=== PATIENT | female | born 1960 | race Two or more races ===

== ENCOUNTER 2022-07-27 21:33 | Emergency (ER) | payer OTHER, SELFPAY ==
--- NOTE | ~2022-07-27 | XR_ITS ---
EXAMINATION: XR CHEST CLINICAL INFORMATION: Chest pain COMPARISON: None TECHNIQUE: Frontal view of the chest was obtained. FINDINGS: The lungs are clear with no focal consolidation. No evidence of pneumothorax, pulmonary edema, or pleural effusions. The cardiomediastinal silhouette is unremarkable. No acute osseous findings. XR/XR chest 1V IMPRESSION: No acute cardiopulmonary findings.
[2022-07-27 21:53] VITALS: BP 147/75; PULSE 75; RESP 17; TEMP 36.8; O2SAT 97; BMI 35.7
--- NOTE | 2022-07-27 21:55 | ECG_ITS ---
Test Reason : CX PAIN Blood Pressure : / mmHG Vent. Rate : 075 BPM Atrial Rate : 075 BPM P-R Int : 152 ms QRS Dur : 086 ms QT Int : 394 ms P-R-T Axes : 057 026 075 degrees QTc Int : 439 ms Normal sinus rhythm Normal ECG When compared with ECG of 07-APR-2013 15:33, No significant change was found Referred By: Generic ED Physician Electronically Signed By:LIANNA CHAPMAN
[2022-07-27 22:16] LABS: Basophils Percent Auto 0.4 % (0-2); Eosinophils Absolute Auto 0.2 X10*3/uL (0.0-0.4); Eosinophils Percent Auto 2.2 % (0-4); Hematocrit 36.6 % (37.0-47.0); Imm Gran Abs Auto 0.02 X10*3/uL (0.00-0.03); Imm Gran Pct Auto 0.2 % (0.0-0.4); Lymphocytes Percent Auto 35.6 % (20-40); MANUAL DIFF FLAG NO; Mean Corpuscular HGB Conc 32.8 g/dl (31.0-35.0); Mean Corpuscular Hemoglobin 27.8 pg (27.0-33.0); Mean Corpuscular Volume 84.9 fL (80.0-98.0); Mean Platelet Volume 9.8 fL (9.4-12.3); Monocytes Absolute Auto 0.5 X10*3/uL (0.1-1.2); Monocytes Percent Auto 5.8 % (2-11); Neutrophils Absolute Auto 4.7 x10*3/uL (2.0-8.3); Neutrophils Percent Auto 55.8 % (45-73); Platelet Count 274 X10*3/uL (160-400); Red Blood Count 4.31 X10*6/uL (4.20-5.50); Red Cell Distribution Width 12.7 % (11.0-16.0); White Blood Count 8.3 X10*3/uL (4.8-10.8)
[2022-07-27 22:42] VITALS: BP 129/58; PULSE 70; TEMP 36.7; O2SAT 97
[2022-07-27 22:46] LABS: Anion Gap 14 (12-20); Blood Urea Nitrogen 14 mg/dL (9-16); Carbon Dioxide 23 mmol/L (22-29); Chloride 103 mmol/L (96-108); Creatinine Clr Calc Pharmacy 92.4; Estimated Glomerular Filt Rate > 60; Glucose Random 196 mg/dL (60-115); Sodium 136 mmol/L (135-145)
[2022-07-27 22:54] LABS: Troponin-I High Sensitivity < 3.5 ng/L (<3.5-17.0)
--- NOTE | 2022-07-27 22:55 | ED_ITS ---
HPI - Chest Pain General Chief Complaint: Chest Pain Stated Complaint: chest and back pain Time Seen by Provider: 07/27/22 22:40 Source: patient Mode of arrival: ambulatory Limitations: no limitations History of Present Illness HPI narrative: Patient comes to the emergency room complaining of chest pain of started at 20:00, almost 3 hours ago while she was watching TV. Patient states it was a sharp pain, lasting a few minutes and then it self resolved. Patient states she has been having this kind of her problems for about a week. However, patient states that throughout the week the patient has been on the right side of her chest posteriorly over the scar that she has from a previous surgery for ?tumor removal?. At this time, patient has no chest pain, patient states that she has a constant achy pain on the right side of the back where her surgical scar is Related Data Allergies Allergy/AdvReac Type Severity Reaction Status Date / Time prednisone Allergy Hives Verified 07/27/22 21:53 Review of Systems Review of Systems: Constitutional : No Weight loss, No Fever, No Chills, No Night Sweats, No Fatigue, No Malaise ENT/Mouth : No Hearing loss, No Ear Pain, No Nasal Congestion, No Sinus Pain, No Hoarseness, No sore throat, No Rhinorrhea, No Swallowing Difficulty Eyes: No Eye Pain, No Swelling, No Redness, No Foreign Body, No Discharge, No Vision Changes Cardiovascular : Complaining of intermittent chest pain, asymptomatic at this time, No SOB, No Dyspnea on Exertion, No Orthopnea, No Edema, No Palpitations Respiratory : No Cough, No Sputum, No Wheezing, No Smoke Exposure, No Dyspnea Gastrointestinal : No Nausea, No Vomiting, No Diarrhea, No Constipation, No abdominal Pain, No Hematochezia, No Melena Genitourinary : no irregular bleeding, No Dysuria, No Urinary Frequency, No Hematuria, No Urinary Incontinence, No Urgency, No Flank Pain, No Urinary Flow Changes, No Hesitancy Musculoskeletal : No joint pain, No Myalgias, No Joint Swelling, complaining of back pain over the surgical scar in her back on the right side Skin : No Skin Lesions, No rash Neuro : No Weakness, No Numbness, No Paresthesias, No Loss of Consciousness, No Dizziness, No Headache Psych : No Anxiety/Panic, No Depression, No SI/HI/AH/VH, No Social Issues, Heme/Lymph: No Bruising, No Bleeding,No Lymphadenopathy Endocrine : No Polyuria, No Polydipsia, No Temperature Intolerance [facility] Social History Social History Alcohol intake: never Patient Tobacco Use Status: Former Tobacco user Smoked in Last 30 Days: No Use of substances other than those prescribed or required for medical reasons: No Advance Directives: No Advance Directives Information Provided: No Physical Exam Vital Signs: Vital Signs: Last Vital Signs Temp 98.0 F 07/27/22 22:42 Pulse 72 07/28/22 02:00 Resp 21 H 07/28/22 02:00 BP 125/65 07/28/22 00:00 Pulse Ox 97 07/28/22 02:00 O2 Del Method 07/28/22 02:00 BMI result Body Mass Index 35.7 Const: Other: Appearance: Alert. Oriented X3. No acute distress. Well-appearing Eyes: Pupils equal, round and reactive to light. ENT: Pharynx normal. Neck: Normal inspection. Neck supple. No lymph nodes noted. No crepitus CVS: Normal heart rate and rhythm. Pulses normal. Normal S1 and S2 Respiratory: No respiratory distress. Breath sounds normal. No Wheezing. No rales Abdomen: Soft and nontender. No rigidity. No distention. Skin: Skin warm and dry. Normal skin color. Normal skin turgor. Well-healed scar in the middle of the back right side Extremities: No lower extremity edema. No Lacerations. No Rash Neuro: Oriented X 3. No motor deficit. No sensory deficit. Moving all extremities. No slurred speech. CN 2 through 12 grossly intact Psych: calm, cooperative, normal affect Course Course Course Narrative: Patient's EKG within normal limits, normal sinus rhythm, heart rate 75, no ST segment depression or elevation, no T-wave inversion, QTC 439 White blood cell count within normal limits, troponin negative. Troponin 2. Will be checked at 01:00. Chest x-ray pending Patient remains asymptomatic, troponin x2 negative. MDM - Chest Pain Lab Data Result diagrams: 07/27/22 22:04 07/27/22 22:04 Labs: Lab Results 07/27/22 07/27/22 07/27/22 Range/Units 22:04 22:04 22:04 WBC 8.3 (4.8-10.8) X10*3/uL RBC 4.31 (4.20-5.50) X10*6/uL Hgb 12.0 (12.0-16.0) g/dl Hct 36.6 L (37.0-47.0) % MCV 84.9 (80.0-98.0) fL MCH 27.8 (27.0-33.0) pg MCHC 32.8 (31.0-35.0) g/dl RDW 12.7 (11.0-16.0) % Plt Count 274 (160-400) X10*3/uL MPV 9.8 (9.4-12.3) fL Immature Gran % (Auto) 0.2 (0.0-0.4) % Neut % (Auto) 55.8 (45-73) % Lymph % (Auto) 35.6 (20-40) % [place] % (Auto) 5.8 (2-11) % Eos % (Auto) 2.2 (0-4) % Baso % (Auto) 0.4 (0-2) % Lymph # (Auto) 3.0 (1.2-4.9) X10*3/uL [place] # (Auto) 0.5 (0.1-1.2) X10*3/uL Eos # (Auto) 0.2 (0.0-0.4) X10*3/uL Baso # (Auto) 0.0 (0.0-0.2) X10*3/uL Abs Immat Gran (auto) 0.02 (0.00-0.03) X10*3/uL Absolute Neuts (auto) 4.7 (2.0-8.3) x10*3/uL Absolute Nucleated RBC 0.000 (0.0-0.012) X10*3/uL Nucleated RBC % (auto) 0.0 (0.0-0.2) /100WBC Sodium 136 (135-145) mmol/L Potassium 4.0 (3.3-5.1) mmol/L Chloride 103 (96-108) mmol/L Carbon Dioxide 23 (22-29) mmol/L Anion Gap 14 (12-20) BUN 14 (9-16) mg/dL Creatinine 0.72 (0.5-1.4) mg/dL Estim Creat Clear Calc 92.4 Estimated GFR > 60 Random Glucose 196 H (60-115) mg/dL Calcium 9.0 (8.4-10.2) mg/dL Troponin I High Sens < 3.5 (<3.5-17.0) ng/L B-Natriuretic Peptide 17 (<100) pg/mL 07/28/22 Range/Units 02:24 WBC (4.8-10.8) X10*3/uL RBC (4.20-5.50) X10*6/uL Hgb (12.0-16.0) g/dl Hct (37.0-47.0) % MCV (80.0-98.0) fL MCH (27.0-33.0) pg MCHC (31.0-35.0) g/dl RDW (11.0-16.0) % Plt Count (160-400) X10*3/uL MPV (9.4-12.3) fL Immature Gran % (Auto) (0.0-0.4) % Neut % (Auto) (45-73) % Lymph % (Auto) (20-40) % [place] % (Auto) (2-11) % Eos % (Auto) (0-4) % Baso % (Auto) (0-2) % Lymph # (Auto) (1.2-4.9) X10*3/uL [place] # (Auto) (0.1-1.2) X10*3/uL Eos # (Auto) (0.0-0.4) X10*3/uL Baso # (Auto) (0.0-0.2) X10*3/uL Abs Immat Gran (auto) (0.00-0.03) X10*3/uL Absolute Neuts (auto) (2.0-8.3) x10*3/uL Absolute Nucleated RBC (0.0-0.012) X10*3/uL Nucleated RBC % (auto) (0.0-0.2) /100WBC Sodium (135-145) mmol/L Potassium (3.3-5.1) mmol/L Chloride (96-108) mmol/L Carbon Dioxide (22-29) mmol/L Anion Gap (12-20) BUN (9-16) mg/dL Creatinine (0.5-1.4) mg/dL Estim Creat Clear Calc Estimated GFR Random Glucose (60-115) mg/dL Calcium (8.4-10.2) mg/dL Troponin I High Sens < 3.5 (<3.5-17.0) ng/L B-Natriuretic Peptide (<100) pg/mL Discharge Plan Discharge Clinical Impression: Atypical chest pain Patient Disposition: Home, Self-Care Instructions: Chest Pain (DC), Chest Wall Pain (ED) Additional Instructions: Please follow-up with your primary care physician tomorrow. If you have any worsening or new symptoms, please return to the emergency room or call 911
[2022-07-27 23:19] LABS: B Type Natriuretic Peptide 17 pg/mL (<100)
[2022-07-27 23:34] VITALS: PULSE 70
[2022-07-28] VITALS: BP 125/65; PULSE 64; RESP 11; O2SAT 97
[2022-07-28 02:00] VITALS: PULSE 72; RESP 21; O2SAT 97
[2022-07-28 02:55] LABS: Troponin-I High Sensitivity < 3.5 ng/L (<3.5-17.0)
[2022-07-28 03:09] VITALS: BP 128/74; PULSE 70; RESP 20; TEMP 36.7; O2SAT 97
== END 2022-07-28 03:10 | disposition home or self-care (01) ==
PROVIDERS: Emergency Provider Emergency Medicine
DX: R07.89 Other chest pain (principal); M54.50 Low back pain, unspecified; R06.02 Shortness of breath; Z87.891 Personal history of nicotine dependence; Z79.899 Other long term (current) drug therapy
CPT/HCPCS: 36415; 71045; 80048; 83880; 84484; 85025; 93005; 99284

== ENCOUNTER 2023-02-12 22:45 | Emergency (ER) | payer OTHER, SELFPAY ==
[2023-02-12 22:56] VITALS: BP 152/75; PULSE 76; RESP 16; TEMP 36.7; O2SAT 97; BMI 33.9
[2023-02-12 23:23] LABS: MANUAL DIFF FLAG NO
[2023-02-12 23:24] LABS: Basophils Percent Auto 0.5 % (0-2); Eosinophils Absolute Auto 0.3 X10*3/uL (0.0-0.4); Eosinophils Percent Auto 2.9 % (0-4); Hematocrit 38.9 % (37.0-47.0); Hemoglobin 12.8 g/dl (12.0-16.0); Imm Gran Abs Auto 0.01 X10*3/uL (0.00-0.03); Imm Gran Pct Auto 0.1 % (0.0-0.4); Lymphocytes Absolute Auto 2.5 X10*3/uL (1.2-4.9); Lymphocytes Percent Auto 29.8 % (20-40); Mean Corpuscular HGB Conc 32.9 g/dl (31.0-35.0); Mean Corpuscular Hemoglobin 28.3 pg (27.0-33.0); Mean Corpuscular Volume 85.9 fL (80.0-98.0); Monocytes Absolute Auto 0.5 X10*3/uL (0.1-1.2); Monocytes Percent Auto 5.9 % (2-11); Neutrophils Absolute Auto 5.2 x10*3/uL (2.0-8.3); Neutrophils Percent Auto 60.8 % (45-73); Platelet Count 241 X10*3/uL (160-400); Red Blood Count 4.53 X10*6/uL (4.20-5.50); Red Cell Distribution Width 12.5 % (11.0-16.0); White Blood Count 8.5 X10*3/uL (4.8-10.8)
[2023-02-12 23:44] LABS: Alanine Aminotransferase 12 U/L (0-31); Alkaline Phosphatase 93 U/L (39-117); Anion Gap 12 (12-20); Aspartate Amino Transferase 13 U/L (5-31); Bilirubin Total 0.6 mg/dL (0.0-1.0); Blood Urea Nitrogen 18 mg/dL (9-16); Calcium 8.9 mg/dL (8.4-10.2); Carbon Dioxide 27 mmol/L (22-29); Chloride 102 mmol/L (96-108); Creatinine Clr Calc Pharmacy 94.4; Estimated Glomerular Filt Rate > 60; Glucose Random 244 mg/dL (60-115); Sodium 137 mmol/L (135-145); Total Protein 6.9 g/dL (6.5-8.0)
[2023-02-13 01:43] VITALS: BP 154/77; PULSE 79; RESP 17; TEMP 36.5; O2SAT 95
--- NOTE | 2023-02-13 02:41 | PC.NURSE ---
late entry- this rn and rn relief charge unable to place iv. additional rn able to place 20 g in R AC. pt at bedside. pt awaiting to be seen by ed provider
--- NOTE | 2023-02-13 03:59 | PC.NURSE ---
pt becoming increasingly agitated about wait time. pt states to this rn that she was going to leave. this rn instructed pt she cannot leave at this time as she has an iv, instructed pt cannot leave with iv in place. this rn informed dr rudd of pt's increasing agitation. per md pt will be seen next. this rn informed pt, pt agreeable to this. pt then came to nurses station asking rn to remove iv. this rn was able to redirect pt in room discussed with pt that md states pt is to be seen next. at which time arrived at bedside for exam
[2023-02-13] MEDS: diphenhydrAMINE HCL 50 MG/ML VIAL IVPUSH (04:15)
[2023-02-13] MEDS: Ketorolac Tromethamine 15 MG/ML VIAL 30 MG IVPUSH (04:15)
[2023-02-13] MEDS: Metoclopramide HCl 10 MG/2 ML VIAL IVPUSH (04:15)
--- NOTE | 2023-02-13 04:19 | PC.NURSE ---
pt seen by dr rudd. pt agreeable to stay for medication. pt medicated according to mar. at bedside
[2023-02-13 05:47] VITALS: BP 143/75; PULSE 73; RESP 17; TEMP 36.9; O2SAT 94
--- NOTE | 2023-02-13 06:07 | ED_ITS ---
HPI - Headache General Chief Complaint: Headache Stated Complaint: Head pain Time Seen by Provider: 02/13/23 04:00 Source: patient and family () Mode of arrival: ambulatory Limitations: no limitations History of Present Illness HPI Narrative: 62-year-old female who presents emergency department for evaluation of a headache. She states that she woke up yesterday morning with ache. She states that the headache was initially located in the front of her head but did radiate to the back of her head. She describes the pain is a constant, pressure, throbbing like sensation. The pain is 8/10 at its worst. She had associated nausea with 2 episodes of vomiting. She denied numbness, weakness, lightheadedn ess, dizziness. She denied fever, chills, rhinorrhea, sore throat. Related Data Previous Rx's Medication Instructions Recorded diphenhydramine HCl 25 mg tablet 50 mg PO Q6H PRN headache #20 tabs 02/13/23 (Allergy) metoclopramide HCl 10 mg tablet 10 mg PO Q6H PRN nausea and 02/13/23 (Reglan) vomiting #14 tabs Allergies Allergy/AdvReac Type Severity Reaction Status Date / Time prednisone Allergy Hives Verified 02/12/23 23:03 Review of Systems Review of Systems: Yes all other systems are reviewed and are negative [facility] Past Medical History [facility] Narrative: Past medical history: Diabetes mellitus, COPD, depression, anxiety. Past surgical history. She is . She denies tobacco, alcohol and drug use. Social History Social History Alcohol intake: never Patient Tobacco Use Status: Former Tobacco user Smoked in Last 30 Days: No Use of substances other than those prescribed or required for medical reasons: No Advance Directives: No Advance Directives Information Provided: Yes Patient : No Physical Exam Vital Signs: Vital Signs: Last Vital Signs Temp 98.4 F 02/13/23 05:47 Pulse 73 02/13/23 05:47 Resp 17 02/13/23 05:47 BP 143/75 H 02/13/23 05:47 Pulse Ox 94 02/13/23 05:47 O2 Del Method 02/13/23 05:47 BMI result Body Mass Index 33.9 Const: General: cooperative and no acute distress Orientation/consciousness: oriented to person and oriented to place Limitations: no limitations HEENT: Head: Yes normal to inspection, Yes normocephalic and Yes atraumatic Ears: external ears normal General nose exam: Normal external nose present Face and sinus: Yes normal facial exam Mouth: Normal oral and palatal mucosa present Throat: Yes posterior oropharynx normal Eyes: General: appearance normal, both eyes and all related structures Pupils: Equal, round and reactive pupils present Neck: Neck: Yes normal visual inspection, Yes no lymphadenopathy, Yes trachea midline and Yes supple Chest: Chest palpation & inspection: normal inspection of the chest and normal palpation of entire chest wall Resp: Effort & Inspection: normal respiratory effort and able to speak in complete sentences Auscultation: clear to auscultation bilaterally Cardio: Rate: regular rate Rhythm: regular rhythm Heart sounds: S1 normal heart sound present, S2 normal heart sound present and no murmurs GI: Inspection: Yes normal to inspection Palpation (GI): Soft to palpation, nontender and no guarding Auscultation: normal bowel sounds : General: Yes no CVA tenderness Back/Spine/Pelvis: Back: no CVA tenderness Skin: General skin exam: no rashes or lesions noted Neuro: General: oriented to person and oriented to place Cranial nerves: Yes CN's II-XII intact bilaterally and Yes Equal, round and reactive pupils present Cognition (Neuro): normal cognition Motor exam (neuro): 5/5 motor strength present throughout Extrem: General: Yes normal to inspection Psych: Appearance: grossly normal Speech and movement: Normal speech and movement present Affect: normal affect Attitude: cooperative Thought process: Normal thought process present Thought content: Normal thought content present Medications Administered Discontinued Medications Generic Name Dose Route Start Last Admin Trade Name Yan PRN Reason Stop Dose Admin Diphenhydramine HCl 50 mg 02/13/23 04:07 02/13/23 04:15 Diphenhydramine Hcl 50 Mg/Ml Vial IVPUSH 02/13/23 04:08 50 mg ONCE STA Administration Ketorolac Tromethamine 30 mg 02/13/23 04:07 02/13/23 04:15 Ketorolac Tromethamine 15 Mg/Ml Vial IVPUSH 02/13/23 04:08 30 mg ONCE STA Administration Metoclopramide HCl 10 mg 02/13/23 04:07 02/13/23 04:15 Metoclopramide Hcl 10 Mg/2 Ml Vial IVPUSH 02/13/23 04:08 10 mg ONCE STA Administration Tramadol HCl 50 mg 02/13/23 06:07 02/13/23 06:34 Tramadol Hcl 50 Mg Tablet PO 02/13/23 06:08 50 mg ONCE STA Administration Medical Decision Making Medical Decision Making [facility] Narrative: 62-year-old female who presents emergency department for evaluation of a headache that started yesterday morning and has been constant since then, the pain was initially located in the front of her head and then radiated back her head. Pain is a constant, pressure, throbbing sensation which is 8/10 at its worst. The pain was associated with nausea and vomiting. Patient's physical examination was unremarkable. Interpretation patient's laboratory evaluation is as follows: CBC was normal. CMP revealed an elevated glucose of 244. The patient was treated with Reglan 10 mg IV, Benadryl 50 mg IV and Toradol 30 mg IV with some improvement of her pain. She states that her pain was coming back but she wanted oral medications. She takes tramadol at home therefore she was given tramadol 50 mg orally pain. Differential Diagnosis Differential diagnosis includes was not limited to migraine headache, headache, stroke, bleed, musculoskeletal pain Lab Data [facility] Lab Attestation statement: I reviewed the patient's lab results. 02/12/23 23:16 02/12/23 23:16 Labs: Lab Results 02/12/23 02/12/23 Range/Units 23:16 23:16 WBC 8.5 (4.8-10.8) X10*3/uL RBC 4.53 (4.20-5.50) X10*6/uL Hgb 12.8 (12.0-16.0) g/dl Hct 38.9 (37.0-47.0) % MCV 85.9 (80.0-98.0) fL MCH 28.3 (27.0-33.0) pg MCHC 32.9 (31.0-35.0) g/dl RDW 12.5 (11.0-16.0) % Plt Count 241 (160-400) X10*3/uL MPV 10.0 (9.4-12.3) fL Immature Gran % (Auto) 0.1 (0.0-0.4) % Neut % (Auto) 60.8 (45-73) % Lymph % (Auto) 29.8 (20-40) % [place] % (Auto) 5.9 (2-11) % Eos % (Auto) 2.9 (0-4) % Baso % (Auto) 0.5 (0-2) % Lymph # (Auto) 2.5 (1.2-4.9) X10*3/uL [place] # (Auto) 0.5 (0.1-1.2) X10*3/uL Eos # (Auto) 0.3 (0.0-0.4) X10*3/uL Baso # (Auto) 0.0 (0.0-0.2) X10*3/uL Abs Immat Gran (auto) 0.01 (0.00-0.03) X10*3/uL Absolute Neuts (auto) 5.2 (2.0-8.3) x10*3/uL Absolute Nucleated RBC 0.000 (0.0-0.012) X10*3/uL Nucleated RBC % (auto) 0.0 (0.0-0.2) /100WBC Sodium 137 (135-145) mmol/L Potassium 4.0 (3.3-5.1) mmol/L Chloride 102 (96-108) mmol/L Carbon Dioxide 27 (22-29) mmol/L Anion Gap 12 (12-20) BUN 18 H (9-16) mg/dL Creatinine 0.70 (0.5-1.4) mg/dL Estim Creat Clear Calc 94.4 Estimated GFR > 60 Random Glucose 244 H (60-115) mg/dL Calcium 8.9 (8.4-10.2) mg/dL Total Bilirubin 0.6 (0.0-1.0) mg/dL AST 13 (5-31) U/L ALT 12 (0-31) U/L Alkaline Phosphatase 93 (39-117) U/L Total Protein 6.9 (6.5-8.0) g/dL Albumin 4.0 (3.5-5.0) g/dL Discharge Plan Discharge Clinical Impression: Headache Patient Disposition: Home, Self-Care Instructions: Acute Headache (ED) Additional Instructions: Your symptoms are consistent with a migraine. I want you to take the following 3 medications together every 6 hours as needed for headache, nausea or vomiting. Tunde (oclopramide) in 10 mg, 1 pill Benadryl 25 mg, 2 pills Tramadol 50 mg After you take these medications, lie down in a dark quiet room and try to fall asleep. These medications will make you sleepy, do not drive or work after taking these medications. Follow-up with your doctor in 2 days. Please return to the emergency department if your symptoms get worse or if you develop any symptoms that are concerning to you. Prescriptions: New metoclopramide HCl [Reglan] 10 mg tablet 10 mg PO Q6H PRN (Reason: nausea and vomiting) Qty: 14 0RF diphenhydramine HCl [Allergy] 25 mg tablet 50 mg PO Q6H PRN (Reason: headache) Qty: 20 0RF Interventions: ED Discharge Assessment Last Done: 02/13/23 06:39
[2023-02-13] MEDS: traMADoL HCL 50 MG TABLET PO (06:34)
--- NOTE | 2023-02-13 06:38 | PC.NURSE ---
pt medicated according to mar. iv removed at time of discharge. pt reports 8/10 pain at time of medication. pt at bedside. pt ambulatory at discharge. pt provided with discharge packet. pt verbalized understanding of discharge plan
== END 2023-02-13 06:40 | disposition home or self-care (01) ==
PROVIDERS: Emergency Provider Emergency Medicine Emergency Medical Services
DX: R51.9 Headache, unspecified (principal)
CPT/HCPCS: 36415; 80053; 85025; 96374; 96375; 99284; J1200; J1885; J2765

== ENCOUNTER 2023-07-23 00:11 | Emergency (ER) | payer MEDICAID, SELFPAY ==
--- NOTE | ~2023-07-23 | CT_ITS ---
EXAMINATION: CT ABDOMEN AND PELVIS WITHOUT CONTRAST CLINICAL INFORMATION: Left flank pain, rule out stone COMPARISON: None available. TECHNIQUE: Multidetector volumetric imaging was performed from the superior aspect of the liver through the pubic symphysis. Sagittal and coronal reformatted images were obtained on the technologist's workstation. This CT examination was performed using dose optimization techniques as appropriate, variously including the following: *Automated exposure control *Adjustment of mA and/or kV according to patient size (this includes techniques or standardized protocols for targeted exams where dose is matched to indication/reason for exam; i.e. extremities or head) *Use of iterative reconstruction technique DLP: 822 mGy-cm FINDINGS: LUNG BASES: Trace subsegmental atelectasis. LIVER, GALLBLADDER, AND BILIARY TREE: The liver is normal in size, shape, and attenuation. Subcentimeter hypodensity in the lateral right lobe favors a cyst. No biliary ductal dilatation is identified. The gallbladder is unremarkable with no evidence of radiopaque gallstones, gallbladder wall thickening, or obvious pericholecystic inflammatory changes. PANCREAS: Unremarkable. SPLEEN: Unremarkable. ADRENAL GLANDS: Unremarkable. KIDNEYS AND URETERS: No hydronephrosis or obstructing calculus identified. BLADDER: Unremarkable. GASTROINTESTINAL TRACT: Mild colonic diverticulosis. No evidence of bowel obstruction or wall thickening. The appendix is unremarkable. No free fluid or free air is seen. ABDOMINAL WALL: Small fat-containing umbilical hernia. LYMPH NODES: Normal. VASCULAR: Scattered atherosclerotic calcification. PELVIC VISCERA: Unremarkable. OSSEOUS STRUCTURES: Degenerative change in the spine most prominently at L5-S1. CT/CT abdomen pelvis wo IV con IMPRESSION: No hydronephrosis or obstructing calculus identified.
[2023-07-23 00:24] VITALS: BP 145/69; PULSE 69; RESP 18; TEMP 36.6; O2SAT 97; BMI 33.9
--- OUTSIDE RECORDS SUMMARY | 2023-07-23 00:49 | XMS_ITS | Continuity of Care Document ---
Author Name Unknown Organization [facility] Address [address] [place] [id number]- Care Team Providers Care Toolroom Attendant Name Role Phone Shagufta Katz NP Primary Care Physician [phone] Encounter [facility] Date(s): 08/30/20 - 09/29/20 [facility] [address] [place] [id number] [facility] Attending Physician: Lane Hammonds Admitting Physician: Lane Hammonds Referring Physician: Lane Hammonds Allergies, Adverse Reactions, Alerts Substance Reaction Severity Status predniSONE rash Active Immunizations Given and Recorded Vaccine Date Status Refusal Reason pneumococcal 23-valent vaccine 05/07/12 Given Medications Actos 45 mg oral tablet 45, mg, 1, tablet, By Mouth, Daily, 30, 0, 0, 10/04/08 17:40:20, Print ROHINI Number, [id number], Constant Indicator Start Date: 10/04/08 Status: Ordered albuterol 0.083% inhalation solution 3 mL = 2.5 mg, Inhalation, Every 6 hours, PRN for wheezing, # 30 each, 0 Refills, Maintenance, 12/31/16 22:56:01, Solution Start Date: 12/31/16 Status: Ordered albuterol CFC free 90 mcg/inh inhalation aerosol 1 puffs, Inhalation, 4 times a day, PRN for wheezing, # 18 Gm, 2 Refills, Maintenance, Aerosol Start Date: 05/09/12 Stop Date: 08/07/12 Status: Ordered aspirin 81 mg oral enteric coated tablet 1 tablet = 81 mg, By Mouth, Daily, 0 Refills, Maintenance Start Date: 07/04/10 Status: Ordered BD ultrafine II short insulin syringes U100 See Instructions, 50, 6, 6, 03/09/08 14:27:05, USE ONE PER DAY, Constant Indicator, BD ultrafine IIshort insulin syringes U100 Start Date: 03/09/08 Status: Ordered beclomethasone 80 mcg/inh inhalation aerosol 1 puffs, Inhalation, 2 times a day, # 1 each, 0 Refills, Maintenance, 12/31/16 22:55:07 Start Date: 12/31/16 Stop Date: 01/07/17 Status: Ordered Cane See Instructions, # 1 units, Refills 0, Tot. Refills 0, Maintenance, use as directed, 01/01/15 20:37:47, Compound Start Date: 01/01/15 Status: Ordered Colyte 4 Flavor oral powder for reconstitution 8 oz, By Mouth, Every 20 minutes, # 1 each, 0 Refills, Maintenance, 01/04/15 11:32:58, REC Powder Start Date: 01/04/15 Status: Ordered Glucophage 1000 mg oral tablet 1 tablet = 1,000 mg, By Mouth, 2 times a day, 0 Refills, Maintenance Start Date: 03/14/11 Status: Ordered Glucotrol XL 10 mg oral tablet, extended release 10, mg, 1, tablet, By Mouth, 2 times a day before breakfast and dinne, 60, 6, 6, 12/21/07 15:40:19,Print ROHINI Number, [id number], Constant Indicator Start Date: 12/21/07 Status: Ordered hydrocortisone topical 2.5% cream 1 application, Topically, 3 times a day, # 30 Gm, 0 Refills Start Date: 10/30/09 Stop Date: 11/28/09 Status: Ordered hydroxyzine hydrochloride 50 mg oral tablet 1 tablet = 50 mg, By Mouth, 4 times a day, PRN Anxiety, # 40 tablet, 0 Refills Start Date: 10/30/09 Stop Date: 11/29/09 Status: Ordered ibuprofen 600 mg oral tablet 1 tablet = 600 mg, By Mouth, 4 times a day, PRN Pain, # 40 tablet, 0 Refills, Maintenance, Tablet Start Date: 07/21/10 Status: Ordered Lantus 100 u/ml subcutaneous solution 14, units, Subcutaneous Infusion, Daily, 10, mL, 6, 6, 02/12/09 13:05:28 Start Date: 02/12/09 Status: Ordered Lisinopril = 10 mg, By Mouth, Daily, 0 Refills, Maintenance Start Date: 07/04/10 Status: Ordered mometasone 110 mcg/inh inhalation aerosol powder = 110 mcg, Inhalation, Daily before dinner, # 2 each, 2 Refills, Maintenance Start Date: 05/09/12 Stop Date: 08/07/12 Status: Ordered
--- OUTSIDE RECORDS SUMMARY | 2023-07-23 00:49 | XMS_ITS | Continuity of Care Document ---
Author Name Unknown Organization [facility] Address [address] [place] [address]- Care Team Providers Care Commissions Analyst Name Role Phone Sterling CHAVEZ, Shagufta Primary Care Physician Encounter [facility] Date(s): 05/25/23 - 05/25/[address] [address]- Discharge Disposition: A-D/C Home Attending Physician: Phil Dailey MD Admitting Physician: Phil Dailey MD Referring Physician: Not on Staff, Referring MD Allergies, Adverse Reactions, Alerts Substance Reaction Severity Status predniSONE rash Active Immunizations Given and Recorded Vaccine Date Status Refusal Reason pneumococcal 23-valent vaccine 05/07/12 Given Medications Actos 45 mg oral tablet 45, mg, 1, tablet, By Mouth, Daily, 30, 0, 0, 10/04/08 17:40:20, Print ROHINI Number, [id number], Constant Indicator Start Date: 10/04/08 Status: Ordered [...] 60, 6, 6, 12/21/07 15:40:19,Print ROHINI Number, [id number], Constant Indicator Start Date: 12/21/07 Status: Ordered [...] Date: 05/09/12 Stop Date: 08/07/12 Status: Ordered Vital Signs Most recent to oldest [Reference Range]: 1 2 Height 168 cm (05/25/23 6:04 PM) Weight 94.7 kg (05/25/23 6:04 PM) Oxygen Saturation [94-100 %] 99 % (05/25/23 6:04 PM) 99 % (05/25/23 6:04 PM) Pulse Rate [55-90 bpm] 90 bpm (05/25/23 6:04 PM) 82 bpm (05/25/23 6:04 PM) Blood Pressure [90-138/55-84 mm Hg] 143/ 64mm Hg *H* (05/25/23 6:04 PM) Respiratory Rate [16-30 br/min] 18 br/mi n (05/25/23 6:04 PM) 18 br/min (05/25/23 6:04 PM) Temperature [96.8-100.4 DegF] 96.9 DegF (05/25/23 6:04 PM) Mode of Delivery (Oxygen) Room air (05/25/23 6:04 PM) Room air (05/25/23 6:04 PM) Temperature Route Temporal (05/25/23 6:04 PM) Dry Weight 94.7 kg (05/25/23 6:04 PM) Note * Brooke Shannon: PERFORM, SIGN, VERIFY Event Display: Patient Education Handout Authored Date: [id number] Patient Care team information Care Team Personnel Name: Harmony Gilman RN Position: [facility] AMB Nurse Member Role: Primary Care Nurse Name: Shagufta Katz NP Position: Reference Physician Member Role: PCP Address: Address: [address] [place] [id number] Name: Carmen No RN Position: [facility] ED RN W/OE and Tasks Member Role: Patient Care Provider Name: Brooke Shannon Position: [facility] Associate Professional Member Role: Physician Music Grapher Address: Address: [address] [place] [address] [place] [address]- [place] Name: Phil Dailey MD Position: [facility] ED Medicine MD Member Role: Admitting Physician Address: Address: [address] [place] [address] [place] [address]- Care Team Related Persons Name: SENIA VELASCO Address: home [address] [place] [address] Name: JUAN DAVID BREWSTER
--- OUTSIDE RECORDS SUMMARY | 2023-07-23 00:49 | XMS_ITS | Continuity of Care Document ---
Author Name Unknown Organization [facility] ter Address [address] [place] [address]- Care Team Providers Care Hospital Wellness Coordinator Name Role Phone Sterling CHAVEZ, Shagufta Primary Care Physician Encounter [facility] Date(s): 06/06/21 - 09/14/[address] [address] Attending Physician: Shagufta Katz NP Admitting Physician: Sterling CHAVEZ, Shagufta Referring Physician: Shagufta Katz NP Allergies, Adverse Reactions, Alerts Substance Reaction Severity Status predniSONE rash Active Immunizations Given and Recorded Vaccine Date Status Refusal Reason pneumococcal 23-valent vaccine 05/07/12 Given Medications Actos 45 mg oral tablet 45, mg, 1, tablet, By Mouth, Daily, 30, 0, 0, 10/04/08 17:40:20, Print ROHINI Number, [id number], Constant Indicator Start Date: 10/04/08 Status: Ordered [...] 60, 6, 6, 12/21/07 15:40:19,Print ROHINI Number, [id number], Constant Indicator Start Date: 12/21/07 Status: Ordered [...]
--- OUTSIDE RECORDS SUMMARY | 2023-07-23 00:49 | XMS_ITS | Continuity of Care Document ---
Author Name Unknown Organization [facility] Address [address] [place] [address] [address] [place] [address]- Care Team Providers Care Medical Office Worker Name Role Phone Sterling CHAVEZ, Shagufta Primary Care Physician Encounter [facility] [place] Date(s): 08/12/22 - 09/11/[address] [place] [address]- Allergies, Adverse Reactions, Alerts Substance Reaction Severity Status predniSONE rash Active Immunizations Given and Recorded Vaccine Date Status Refusal Reason pneumococcal 23-valent vaccine 05/07/12 Given Medications Actos 45 mg oral tablet 45, mg, 1, tablet, By Mouth, Daily, 30, 0, 0, 10/04/08 17:40:20, Print ROHINI Number, [id number], Constant Indicator Start Date: 10/04/08 Status: Ordered [...] 60, 6, 6, 12/21/07 15:40:19,Print ROHINI Number, [id number], Constant Indicator Start Date: 12/21/07 Status: Ordered [...] Date: 05/09/12 Stop Date: 08/07/12 Status: Ordered Patient Care team information Personnel Name: Shagufta Katz NP Address: Address: [address] [place] [id number]
--- OUTSIDE RECORDS SUMMARY | 2023-07-23 00:49 | XMS_ITS | Continuity of Care Document ---
Author Name Unknown Organization [facility] Address [address] [place] [address] [address] am[address], [address] [place] [address]- Care Team Providers Care Bulk Delivery Driver Name Role Phone Sterling CHAVEZ, Shagufta Primary Care Physician Encounter [facility] Date(s): 08/27/22 - 09/26/22 [facility] Surgery [address] [place] [address], [address] [place], [place] [address] Attending Physician: AdmLane tinoco Admitting Physician: Admtr, Ar8 Referring Physician: Admtr, Ar8 Allergies, Adverse Reactions, Alerts Substance Reaction Severity Status predniSONE rash Active Immunizations Given and Recorded Vaccine Date Status Refusal Reason pneumococcal 23-valent vaccine 05/07/12 Given Medications Actos 45 mg oral tablet 45, mg, 1, tablet, By Mouth, Daily, 30, 0, 0, 10/04/08 17:40:20, Print ROHINI Number, [id number], Constant Indicator Start Date: 10/04/08 Status: Ordered [...] 60, 6, 6, 12/21/07 15:40:19,Print ROHINI Number, [id number], Constant Indicator Start Date: 12/21/07 Status: Ordered [...] Personnel Name: Shagufta Katz NP Address: Address: [address] [place] [address]
--- OUTSIDE RECORDS SUMMARY | 2023-07-23 00:49 | XMS_ITS | Continuity of Care Document ---
Author Name Unknown Organization [facility] Address [address] [place] [address]- Care Team Providers Care Fisher Name Role Phone Not on Staff, PCP Primary Care Physician Unavail able Encounter [facility] [place] Date(s): 11/09/19 - 02/29/20 [facility] [address] [place] [address] [facility] Attending Physician: Rocio Thakur MD Admitting Physician: Rocio Thakur MD Referring Physician: Sterling CLIENT RELATIONS REPRESENTATIVE, Shagufta Allergies, Adverse Reactions, Alerts Substance Reaction Severity Status predniSONE rash Active Immunizations Given and Recorded Vaccine Date Status Refusal Reason pneumococcal 23-valent vaccine 05/07/12 Given Medications Actos 45 mg oral tablet 45, mg, 1, tablet, By Mouth, Daily, 30, 0, 0, 10/04/08 17:40:20, Print ROHINI Number, [id number], Constant Indicator Start Date: 10/04/08 Status: Ordered [...] 60, 6, 6, 12/21/07 15:40:19,Print ROHINI Number, [id number], Constant Indicator Start Date: 12/21/07 Status: Ordered [...]
--- OUTSIDE RECORDS SUMMARY | 2023-07-23 00:49 | XMS_ITS | Continuity of Care Document ---
Author Name Unknown Organization [facility] Address [address] [place] [address]- Care Team Providers Care Building Official Name Role Phone Sterling CHAVEZ, Shagufta Primary Care Physician Encounter [facility] [place] Date(s): 08/26/22 - 09/28/[address] [address] Attending Physician: Maricruz Bravo MD Admitting Physician: Maricruz Bravo MD Referring Physician: Maricruz Bravo MD Allergies, Adverse Reactions, Alerts Substance Reaction Severity Status predniSONE rash Active Immunizations Given and Recorded Vaccine Date Status Refusal Reason pneumococcal 23-valent vaccine 05/07/12 Given Medications Actos 45 mg oral tablet 45, mg, 1, tablet, By Mouth, Daily, 30, 0, 0, 10/04/08 17:40:20, Print ROHINI Number, [id number], Constant Indicator Start Date: 10/04/08 Status: Ordered [...] 60, 6, 6, 12/21/07 15:40:19,Print ROHINI Number, [id number], Constant Indicator Start Date: 12/21/07 Status: Ordered [...] Name: Shagufta Katz NP Address: Address: [address] [place] [address]
--- OUTSIDE RECORDS SUMMARY | 2023-07-23 00:49 | XMS_ITS | Continuity of Care Document ---
Author Name Unknown Organization [facility] Address [address] [place] [address]- Care Team Providers Care Mmi Teacher Name Role Phone Sterling CHAVEZ, Shagufta Primary Care Physician Encounter [facility] [place] Date(s): 08/26/22 - 09/28/[address] [address] Attending Physician: Maricruz Bravo MD Admitting Physician: Maricruz Bravo MD Referring Physician: Maricruz Bravo MD Allergies, Adverse Reactions, Alerts Substance Reaction Severity Status predniSONE rash Active Immunizations Given and Recorded Vaccine Date Status Refusal Reason pneumococcal 23-valent vaccine 05/07/12 Given Medications Actos 45 mg oral tablet 45, mg, 1, tablet, By Mouth, Daily, 30, 0, 0, 10/04/08 17:40:20, Print ROHINI Number, [id number], Constant Indicator Start Date: 10/04/08 Status: Ordered [...] 60, 6, 6, 12/21/07 15:40:19,Print ROHINI Number, [id number], Constant Indicator Start Date: 12/21/07 Status: Ordered [...] Personnel Name: Shagufta Katz NP Address: Address: [address] [place] [address]
--- OUTSIDE RECORDS SUMMARY | 2023-07-23 00:50 | XMS_ITS | Continuity of Care Document ---
Author Name Unknown Organization [facility] Address [address] [place] [address] Karla ames, [address] [place] [address]- Care Team Providers Care Bonus Clerk Name Role Phone Sterling CHAVEZ, Shagufta Primary Care Physician Encounter [facility] [id number] Date(s): 08/20/22 - 09/26/22 [facility] [address] [place] [address], [address] [place], [place] [address] Attending Physician: Maricruz Bravo MD Referring Physician: Soheila Gómez NP Allergies, Adverse Reactions, Alerts Substance Reaction Severity Status predniSONE rash Active Immunizations Given and Recorded Vaccine Date Status Refusal Reason pneumococcal 23-valent vaccine 05/07/12 Given Medications Actos 45 mg oral tablet 45, mg, 1, tablet, By Mouth, Daily, 30, 0, 0, 10/04/08 17:40:20, Print ROHINI Number, [id number], Constant Indicator Start Date: 10/04/08 Status: Ordered [...] 60, 6, 6, 12/21/07 15:40:19,Print ROHINI Number, [id number], Constant Indicator Start Date: 12/21/07 Status: Ordered [...] Personnel Name: Shagufta Katz NP Address: Address: [address] [place] [id number]
[2023-07-23 00:59] LABS: MANUAL DIFF FLAG NO
[2023-07-23 01:01] LABS: Basophils Absolute Auto 0.1 X10*3/uL (0.0-0.2); Basophils Percent Auto 0.7 % (0-2); Eosinophils Absolute Auto 0.3 X10*3/uL (0.0-0.4); Eosinophils Percent Auto 4.2 % (0-4); Hematocrit 36.6 % (37.0-47.0); Imm Gran Abs Auto 0.01 X10*3/uL (0.00-0.03); Imm Gran Pct Auto 0.1 % (0.0-0.4); Lymphocytes Percent Auto 39.2 % (20-40); Mean Corpuscular HGB Conc 32.8 g/dl (31.0-35.0); Mean Corpuscular Hemoglobin 28.8 pg (27.0-33.0); Mean Corpuscular Volume 87.8 fL (80.0-98.0); Mean Platelet Volume 9.8 fL (9.4-12.3); Monocytes Absolute Auto 0.5 X10*3/uL (0.1-1.2); Monocytes Percent Auto 6.4 % (2-11); Neutrophils Absolute Auto 3.8 x10*3/uL (2.0-8.3); Neutrophils Percent Auto 49.4 % (45-73); Platelet Count 238 X10*3/uL (160-400); Red Blood Count 4.17 X10*6/uL (4.20-5.50); Red Cell Distribution Width 12.7 % (11.0-16.0); White Blood Count 7.6 X10*3/uL (4.8-10.8)
[2023-07-23 01:03] LABS: Appearance Urine Clear; Color Urine Yellow; Glucose Urine UA Negative (Negative); Leukocyte Esterase Urine Moderate (2+) (Negative); Nitrite Urine Negative (Negative); UMIC TRIGGER UACC YES; Urine Blood Negative (Negative); Urine Ketones Negative (Negative); Urine Protein Negative (Neg-Trace)
[2023-07-23 05:58] LABS: Alanine Aminotransferase 10 U/L (0-31); Albumin Level 3.9 g/dL (3.5-5.0); Alkaline Phosphatase 109 U/L (39-117); Anion Gap 10 (12-20); Aspartate Amino Transferase 12 U/L (5-31); Bilirubin Direct < 0.2 mg/dL (0.0-0.5); Bilirubin Total 0.2 mg/dL (0.0-1.0); Blood Urea Nitrogen 16 mg/dL (9-16); Calcium 9.6 mg/dL (8.4-10.2); Carbon Dioxide 26 mmol/L (22-29); Chloride 106 mmol/L (96-108); Creatinine Clr Calc Pharmacy 93.1; Estimated Glomerular Filt Rate > 60; Glucose Random 189 mg/dL (60-115); Lipase 46 U/L (8-78); Sodium 138 mmol/L (135-145); Total Protein 7.2 g/dL (6.5-8.0)
[2023-07-23 06:19] LABS: Bacteria Urine 2+ (None Seen); Hyaline Casts Urine 0-2 /LPF (0-2); RBC Urine 0-2 /HPF (0-2); UACC Culture Trigger YES; WBC Urine 21-50 /HPF (0-5)
== END 2023-07-23 05:30 | disposition home or self-care (01) ==
PROVIDERS: Emergency Provider Internal Medicine
DX: N39.0 Urinary tract infection, site not specified (principal); N23 Unspecified renal colic
CPT/HCPCS: 36415; 74176; 80048; 80076; 81001; 81003; 83690; 85025; 87086; 99282; 99284

== ENCOUNTER 2023-08-10 20:21 | Emergency (ER) | payer MEDICAID, SELFPAY ==
--- NOTE | ~2023-08-10 | CT_ITS ---
EXAMINATION: CT ANGIOGRAM OF THE CHEST WITH AND WITHOUT CONTRAST (CT PULMONARY ANGIOGRAM FOR PE) CLINICAL INFORMATION: Reason for Exam left lower chest pain?PE/infarct COMPARISON: None available. TECHNIQUE: Prior to contrast administration, noncontrast localization images were obtained. Subsequently, multidetector volumetric imaging was performed from the thoracic inlet to below the diaphragms following the administration of 85 mL Omnipaque 350 intravenous contrast. No contrast reaction reported Sagittal, coronal, and MIP oblique sagittal reformatted images were obtained on the CT workstation, uploaded to PACS, and reviewed. This CT examination was performed using dose optimization techniques as appropriate, variously including the following: *Automated exposure control *Adjustment of mA and/or kV according to patient size (this includes techniques or standardized protocols for targeted exams where dose is matched to indication/reason for exam; i.e. extremities or head) *Use of iterative reconstruction technique Total exam dose-length product 406 mGy-cm FINDINGS: QUALITY OF STUDY/CONTRAST BOLUS: Satisfactory. PULMONARY ARTERIES: No pulmonary emboli. THORACIC AORTA: No aneurysm. LUNG: There is mild emphysematous change. There is minimal right perihilar scarring. The lungs are otherwise clear. PLEURA: No pleural effusion or pneumothorax. MEDIASTINUM: Normal heart size. No pericardial effusion. No hilar or mediastinal lymphadenopathy. No evidence of septal bowing or right heart strain. CORONARY ARTERY CALCIFICATION: Mild. CHEST WALL/AXILLA: No axillary or internal mammary lymphadenopathy. OSSEOUS STRUCTURES: No acute or suspicious osseous abnormality. UPPER ABDOMEN: Unremarkable. No reflux of contrast into the hepatic veins to suggest elevated right heart pressures. CT/CT angio chest PE protocol IMPRESSION: No evidence for pulmonary embolism. No active cardiopulmonary disease VTE: Negative.
[2023-08-10 21:31] LABS: Basophils Percent Auto 0.4 % (0-2); Eosinophils Absolute Auto 0.3 X10*3/uL (0.0-0.4); Hematocrit 37.5 % (37.0-47.0); Hemoglobin 12.5 g/dl (12.0-16.0); Imm Gran Abs Auto 0.01 X10*3/uL (0.00-0.03); Imm Gran Pct Auto 0.1 % (0.0-0.4); Lymphocytes Absolute Auto 2.9 X10*3/uL (1.2-4.9); Lymphocytes Percent Auto 39.2 % (20-40); MANUAL DIFF FLAG NO; Mean Corpuscular HGB Conc 33.3 g/dl (31.0-35.0); Mean Corpuscular Hemoglobin 28.7 pg (27.0-33.0); Mean Platelet Volume 9.6 fL (9.4-12.3); Monocytes Absolute Auto 0.4 X10*3/uL (0.1-1.2); Monocytes Percent Auto 5.9 % (2-11); Neutrophils Absolute Auto 3.8 x10*3/uL (2.0-8.3); Neutrophils Percent Auto 50.4 % (45-73); Platelet Count 242 X10*3/uL (160-400); Red Blood Count 4.36 X10*6/uL (4.20-5.50); Red Cell Distribution Width 12.6 % (11.0-16.0); White Blood Count 7.5 X10*3/uL (4.8-10.8)
[2023-08-10 21:45] LABS: Alanine Aminotransferase 10 U/L (0-31); Albumin Level 4.1 g/dL (3.5-5.0); Alkaline Phosphatase 67 U/L (39-117); Anion Gap 12 (12-20); Aspartate Amino Transferase 13 U/L (5-31); Bilirubin Direct 0.2 mg/dL (0.0-0.5); Bilirubin Total 0.5 mg/dL (0.0-1.0); Blood Urea Nitrogen 11 mg/dL (9-16); Calcium 9.6 mg/dL (8.4-10.2); Carbon Dioxide 25 mmol/L (22-29); Chloride 106 mmol/L (96-108); Estimated Glomerular Filt Rate > 60; Glucose Random 194 mg/dL (60-115); Magnesium 1.7 mg/dL (1.6-2.6); Potassium 3.8 mmol/L (3.3-5.1); Sodium 139 mmol/L (135-145); Total Protein 7.2 g/dL (6.5-8.0)
[2023-08-10 21:46] LABS: Appearance Urine Clear; Color Urine Yellow; Glucose Urine UA Negative (Negative); Leukocyte Esterase Urine Moderate (2+) (Negative); Nitrite Urine Negative (Negative); UMIC TRIGGER UACC YES; Urine Blood Negative (Negative); Urine Ketones Negative (Negative); Urine Protein Negative (Neg-Trace)
[2023-08-10 21:50] VITALS: BP 153/89; PULSE 71; RESP 18; TEMP 36.6; O2SAT 98; BMI 35.8
[2023-08-10 21:51] LABS: Bacteria Urine None Seen (None Seen); Hyaline Casts Urine 0-2 /LPF (0-2); RBC Urine 0-2 /HPF (0-2); Squamous Epithelial Cell Urine 0-2 /HPF (0-2); UACC Culture Trigger YES
--- NOTE | 2023-08-10 21:55 | ECG_ITS ---
Test Reason : ABD PAIN Blood Pressure : / mmHG Vent. Rate : 069 BPM Atrial Rate : 069 BPM P-R Int : 154 ms QRS Dur : 082 ms QT Int : 400 ms P-R-T Axes : 040 014 058 degrees QTc Int : 428 ms Normal sinus rhythm Normal ECG When compared with ECG of 27-JUL-2022 21:59, No significant change was found Referred By: Generic ED Physician Electronically Signed By:LIANNA CHAPMAN
[2023-08-10 22:26] LABS: Troponin-I High Sensitivity < 2.7 ng/L (<3.5-17.0)
[2023-08-11 00:41] VITALS: BP 120/47; PULSE 73; RESP 15; TEMP 36.5; O2SAT 97
--- NOTE | 2023-08-11 03:26 | ED_ITS ---
HPI - Abdominal Pain General Chief Complaint: Abdominal Pain Stated Complaint: left side abd pain Time Seen by Provider: 08/11/23 02:20 Source: patient Mode of arrival: ambulatory Limitations: no limitations History of Present Illness HPI narrative: Patient complaining of left upper abdominal pain for last 2 weeks seen here on 07/[address] abdomen done which was negative workup was negative patient went home on Ceftin for cough today complaining of pain patient has no cough no nausea no vomiting no diarrhea no fever no chills no abdominal injury no urinary complaints Related Data Previous Rx's Medication Instructions Recorded diphenhydramine HCl 25 mg tablet 50 mg (2 x 25 mg) PO Q6H PRN 02/13/23 (Allergy) headache #20 tabs metoclopramide HCl 10 mg tablet 10 mg PO Q6H PRN nausea and 02/13/23 (Reglan) vomiting #14 tabs omeprazole 40 mg capsule,delayed 40 mg PO DAILY #30 caps 08/11/23 release tramadol 50 mg tablet 50 mg PO Q6H PRN pain #20 tabs 08/11/23 Allergies Allergy/AdvReac Type Severity Reaction Status Date / Time prednisone Allergy Hives Verified 07/23/23 00:27 Review of Systems Review of Systems Yes all other systems are reviewed and are negative [facility] Social History Social History Alcohol intake: never Patient Tobacco Use Status: Former Tobacco user Smoked in Last 30 Days: No Use of substances other than those prescribed or required for medical reasons: No Advance Directives: No Advance Directives Information Provided: Yes Patient : No Physical Exam ED Vital Signs: Vital Signs - 24 hr 08/10/23 21:50 08/11/23 00:41 08/11/23 04:41 Temperature 97.9 F 97.7 F Pulse Rate 71 73 69 Respiratory Rate 18 15 15 Blood Pressure 153/89 H 120/47 L 114/50 L Pulse Oximetry 98 97 95 Oxygen Delivery Method Room Air Room Air Room Air 08/11/23 05:45 Temperature 97.7 F Pulse Rate 62 Respiratory Rate 18 Blood Pressure 117/62 Pulse Oximetry 98 Oxygen Delivery Method Room Air BMI result Body Mass Index 35.8 Appearance: Alert. Oriented X3. No acute distress. Eyes: PERRLA, No Nystagmus ENT: Pharynx normal. Oral Mucosa moist Neck: Normal inspection. Neck supple. CVS: Normal heart rate and rhythm. Pulses normal. Respiratory: No respiratory distress. Equal air entry bilateral, no wheezing/rales/rhonchi Abdomen: Soft , deep tenderness left upper quadrant Bowel sounds are present, no mass palpable, no CVA tenderness Skin: Skin warm and dry. Normal skin color. Normal skin turgor. Extremities: No lower extremity edema. No calf tenderness Neuro: Oriented X 3. No motor deficit. No sensory deficit.No cerebellar signs , cranial nerves II-XII intact Medical Decision Making Medical Decision Making [facility] Narrative: Patient nonspecific left upper abdominal pain previous CT scan was negative with 2 CTA chest to rule out pulmonary infarct/PE/splenic infarct Suggest CTA chest is negative labs are stable discharge patient home advised to take pain medication follow with GI/ PCP Differential Diagnosis Differential Diagnoses: The differential diagnosis associated with the presentation includes Musculoskeletal pain/splenic infarct/pulmonary infarct/pulmonary emboli/pleural effusion/pneumonia Lab Data [facility] Lab Attestation statement: I reviewed the patient's lab results. 08/10/23 21:24 08/10/23 21:24 Labs: Lab Results 08/10/23 08/10/23 Range/Units 21:24 21:37 WBC 7.5 (4.8-10.8) X10*3/uL RBC 4.36 (4.20-5.50) X10*6/uL Hgb 12.5 (12.0-16.0) g/dl Hct 37.5 (37.0-47.0) % MCV 86.0 (80.0-98.0) fL MCH 28.7 (27.0-33.0) pg MCHC 33.3 (31.0-35.0) g/dl RDW 12.6 (11.0-16.0) % Plt Count 242 (160-400) X10*3/uL MPV 9.6 (9.4-12.3) fL Immature Gran % (Auto) 0.1 (0.0-0.4) % Neut % (Auto) 50.4 (45-73) % Lymph % (Auto) 39.2 (20-40) % [place] % (Auto) 5.9 (2-11) % Eos % (Auto) 4.0 (0-4) % Baso % (Auto) 0.4 (0-2) % Lymph # (Auto) 2.9 (1.2-4.9) X10*3/uL [place] # (Auto) 0.4 (0.1-1.2) X10*3/uL Eos # (Auto) 0.3 (0.0-0.4) X10*3/uL Baso # (Auto) 0.0 (0.0-0.2) X10*3/uL Abs Immat Gran (auto) 0.01 (0.00-0.03) X10*3/uL Absolute Neuts (auto) 3.8 (2.0-8.3) x10*3/uL Absolute Nucleated RBC 0.000 (0.0-0.012) X10*3/uL Nucleated RBC % (auto) 0.0 (0.0-0.2) /100WBC Sodium 139 (135-145) mmol/L Potassium 3.8 (3.3-5.1) mmol/L Chloride 106 (96-108) mmol/L Carbon Dioxide 25 (22-29) mmol/L Anion Gap 12 (12-20) BUN 11 (9-16) mg/dL Creatinine 0.68 (0.5-1.4) mg/dL Estim Creat Clear Calc TNP Estimated GFR > 60 Random Glucose 194 H (60-115) mg/dL Calcium 9.6 (8.4-10.2) mg/dL Magnesium 1.7 (1.6-2.6) mg/dL Total Bilirubin 0.5 (0.0-1.0) mg/dL Direct Bilirubin 0.2 (0.0-0.5) mg/dL AST 13 (5-31) U/L ALT 10 (0-31) U/L Alkaline Phosphatase 67 (39-117) U/L Troponin I High Sens < 2.7 (<3.5-17.0) ng/L Total Protein 7.2 (6.5-8.0) g/dL Albumin 4.1 (3.5-5.0) g/dL Urine Color Yellow Urine Appearance Clear Urine pH 6.0 (5.0-9.0) Ur Specific [place] 1.010 (1.005-1.025) Urine Protein Negative (Neg-Trace) mg/dL Urine Glucose (UA) Negative (Negative) mg/dL Urine Ketones Negative (Negative) mg/dL Urine Blood Negative (Negative) Urine Nitrite Negative (Negative) Ur Leukocyte Esterase Moderate (2+) H (Negative) Urine RBC 0-2 (0-2) /HPF Urine WBC 6-10 H (0-5) /HPF Ur Squamous Epith Cells 0-2 (0-2) /HPF Urine Bacteria None Seen (None Seen) Hyaline Casts 0-2 (0-2) /LPF Medications Administered Discontinued Medications Generic Name Dose Route Start Last Admin Trade Name Freq PRN Reason Stop Dose Admin Iohexol 85 ml 08/11/23 04:41 08/11/23 04:42 Iohexol 350 Mg/Ml 100 Ml Infus..Btl IV 08/11/23 04:42 85 ml ONCE ONE Administration Ketorolac Tromethamine 30 mg 08/11/23 03:49 08/11/23 04:08 Ketorolac Tromethamine 30 Mg/Ml Vial IVPUSH 08/11/23 03:50 30 mg ONCE ONE Administration Discharge Plan Discharge Clinical Impression: Abdominal pain Patient Disposition: Home, Self-Care Instructions: Abdominal Pain (ED) Additional Instructions: Cause of your abdominal pain is not very clear Follow-up with your GI/PCP for further w/u Take Prilosec and tramadol for now La causa de jones dolor abdominal no est? muy ciaran. Brandon un seguimiento con jones GI/PCP para obtener m?s informaci?n sobre usted. [place] Prilosec y tramadol por ahora Prescriptions: New tramadol 50 mg tablet 50 mg PO Q6H PRN (Reason: pain) Qty: 20 0RF omeprazole 40 mg capsule,delayed release(DR/EC) 40 mg PO DAILY Qty: 30 0RF No Action metoclopramide HCl [Reglan] 10 mg tablet 10 mg PO Q6H PRN (Reason: nausea and vomiting) Qty: 14 0RF diphenhydramine HCl [Allergy] 25 mg tablet 50 mg PO Q6H PRN (Reason: headache) Qty: 20 0RF Referrals: Mauro Moreira MD [Physician] - 2 weeks Interventions: ED Discharge Assessment Last Done: 08/11/23 05:56 Discharge Date/Time: 08/11/23 05:57 Print Language: English
[2023-08-11] MEDS: Ketorolac Tromethamine 30 MG/ML VIAL IVPUSH (04:08)
[2023-08-11 04:41] VITALS: BP 114/50; PULSE 69; RESP 15; O2SAT 95
[2023-08-11] MEDS: iohexoL 350 MG/ML 100 ML INFUS..BTL 85 ML IV (04:42)
[2023-08-11 05:45] VITALS: BP 117/62; PULSE 62; RESP 18; TEMP 36.5; O2SAT 98
== END 2023-08-11 05:57 | disposition home or self-care (01) ==
PROVIDERS: Physician Assistant; Emergency Provider Internal Medicine
DX: R10.32 Left lower quadrant pain (principal); R07.89 Other chest pain; R05.9 Cough, unspecified; Z79.899 Other long term (current) drug therapy
CPT/HCPCS: 36415; 71275; 80048; 80076; 81001; 83735; 84484; 85025; 87086; 93005; 96374; 99284; 99285; J1885; Q9967